=== PATIENT | female | born 1960 | race African-American/Black ===

== ENCOUNTER 2021-12-22 13:34 | Emergency (ER) | payer MEDICARE ==
[~2021-12-22] VITALS: Ht 165.1 cm; Wt 90.7 kg
[2021-12-22] MEDS ORDERED: PREDNISONE 10 MG TAB PO NR (14:00)
[2021-12-22] MEDS ORDERED: ALBUTEROL/IPRATROPIUM 3 ML NEB NEB ONE (14:00)
[2021-12-22] MEDS ORDERED: AZITHROMYCIN250 MG PO (15:04)
[2021-12-22] MEDS ORDERED: PREDNISONE20 MG PO (15:04)
[2021-12-22 15:39] VITALS: BP 133/76
== END 2021-12-22 15:39 | disposition home or self-care (01) ==
LOC: ER 13:36
DX: R06.00 Dyspnea, unspecified (principal); J45.901 Unspecified asthma with (acute) exacerbation; I10 Essential (primary) hypertension; Z20.822 Contact with and (suspected) exposure to COVID-19; F17.210 Nicotine dependence, cigarettes, uncomplicated
CPT/HCPCS: 71045; 87400; 94640; 94799; 99284; J7512; U0002